=== PATIENT | female | born 1950 | race Caucasian/White ===

== ENCOUNTER 2018-07-06 01:53 | Emergency (ER) | payer BC, OTHER ==
[~2018-07-06] VITALS: Ht 165.1 cm; Wt 54.9 kg
--- NOTE | 2018-07-06 02:08 | NUR ---
BIB SELF C/C NOSE BLEED SINCE 2149. PT STATES SHE IS ON COUMADIN 5MG. PT IS AAOX4. PT DENIES N/V/D. -DIZZINESS. SKIN WARM AND DRY TO TOUCH. NO S/S OF ACUTE DISTRESS NOTED. PT PLACED ON ROLL UP OPERATOR AND POX. PT SAFETY AND COMFORT MEASURES IN PLACE. BEDSIDE WITH PT. AWAITING MD FOR EVAL.
[2018-07-06] MEDS ORDERED: LET SOLN TOPICAL 8 ML UDC TP ONE (02:12)
[2018-07-06] MEDS ORDERED: OXYMETAZOLINE HCL NASAL SPRAY 30 ML BOTTLE NS ONE (02:12)
--- NOTE | 2018-07-06 02:40 | NUR ---
PT STATES SHE IS FEELING DIZZY AND NAUSEOUS. PT VOMITTED TWICE, BRIGHT RED BLOOD CLOTS NOTED. MD MADE AWARE. PT SAFETY IN PLACE.
[2018-07-06] MEDS ORDERED: ONDANSETRON HCL/PF 4 MG/2 ML VIAL ONE (02:49)
[2018-07-06] MEDS: ONDANSETRON HCL/PF 4 MG/2 ML VIAL IVP ONE (03:07)
[2018-07-06] MEDS: IV NS 0.9% 1,000 ML BAG IV ONE (03:08)
[2018-07-06] MEDS ORDERED: POTASSIUM CL. PREMIX PERIPHER. 50 ML ONE (03:10)
[2018-07-06 03:11] LABS: BASOPHILS % (AUTO) 0.5 % (0.0-2.0); EOSINOPHILS % (AUTO) 2.4 % (0.0-6.0); HEMATOCRIT 32 % (33-45); HEMOGLOBIN 10.9 g/dL (11.5-14.8); LYMPHOCYTES # (AUTO) 2.2 /CMM (0.8-4.8); LYMPHOCYTES % (AUTO) 34.2 % (20.0-44.0); MEAN CORPUSCULAR HEMOGLOBIN 31 PG (26.0-33.0); MEAN CORPUSCULAR HGB CONC 34 g/dl (31.0-36.0); MEAN CORPUSCULAR VOLUME 93 fL (82-100); MONOCYTES # (AUTO) 0.4 /CMM (0.1-1.30); MONOCYTES % (AUTO) 5.9 % (2.0-12.0); NEUTROPHILS # (AUTO) 3.7 /CMM (1.8-8.9); PLATELET COUNT (AUTO) 263 /CMM (150-450); RDW COEFFICIENT OF VARIATION 13.3 (11.5-15.0); RED BLOOD CELL COUNT(AUTO) 3.47 MIL/uL (4.0-5.2); WHITE BLOOD COUNT (AUTO) 6.5 K/uL (4.3-11.0)
[2018-07-06] MEDS: PHYTONADIONE INJ 10 MG in IV D5W 50 ML IV ONE (03:22)
[2018-07-06 03:52] LABS: INR 1.56 (0.87-1.13)
[2018-07-06 03:55] LABS: ALBUMIN 3.5 g/dL (3.4-5.0); BILIRUBIN,TOTAL 0.2 mg/dL (0.2-1.0); CALCIUM, SERUM 8.4 mg/dL (8.5-10.1); POTASSIUM 3.9 mmol/L (3.5-5.1); TOTAL PROTEIN, SERUM 6.9 g/dL (6.4-8.2)
[2018-07-06] MEDS ORDERED: PHYTONADIONE INJ 10 MG/1 ML AMPUL ONE (04:21)
--- NOTE | 2018-07-06 05:00 | NUR ---
Patient discharged to home in stable condition. Written and verbal after care instructions given. Patient verbalizes understanding of instruction.IV removed. Catheter intact and site benign. Pressure and 4x4 applied to site. No bleeding noted. NO S/S OF DISTRESS NOTED UPON DISCHARGE. PT AMBULATED WITH STEADY GAIT NOTED.
[2018-07-06 06:40] VITALS: BP 109/66
== END 2018-07-06 04:59 | disposition home or self-care (01) ==
LOC: ER 01:54
DX: D68.8 Other specified coagulation defects (principal); R04.0 Epistaxis; Z95.9 Presence of cardiac and vascular implant and graft, unspecified
CPT/HCPCS: 36415; 80048-TC; 80076-TC; 85025-TC; 85730-TC; A4216; A4606; J2405; J3430; J3480; J7030; J7060; Z7610